=== PATIENT | male | born 1945 | race Caucasian/White ===

== ENCOUNTER 2022-07-31 10:09 | Inpatient (IN) | payer MEDICARE, OTHER ==
[~2022-07-31] VITALS: Ht 177.8 cm; Wt 77.1 kg
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
[2022-07-31] MEDS ORDERED: MORPHINE SULFATE INJ 2 MG/ML DISP.SYRIN IV ONE ×2 (11:30→16:00)
[2022-07-31 11:42] LABS: BASOPHILS # (AUTO) 0.1 K/uL (0.0-0.2); BASOPHILS % (AUTO) 0.6 % (0.0-2.0); EOSINOPHILS % (AUTO) 0.5 % (0.0-6.0); HEMATOCRIT 36 % (39-51); HEMOGLOBIN 11.6 g/dL (13.5-17.5); LYMPHOCYTES # (AUTO) 1.6 K/uL (0.8-4.8); LYMPHOCYTES % (AUTO) 17.1 % (20.0-44.0); MEAN CORPUSCULAR HGB CONC 33 g/dl (31.0-36.0); MEAN CORPUSCULAR VOLUME 80 fL (80-96); MONOCYTES # (AUTO) 0.7 K/uL (0.1-1.30); MONOCYTES % (AUTO) 7.4 % (2.0-12.0); NEUTROPHILS # (AUTO) 7.1 K/uL (1.8-8.9); NEUTROPHILS % (AUTO) 74.4 % (43.0-81.0); PLATELET COUNT (AUTO) 245 K/uL (150-450); RED BLOOD CELL COUNT(AUTO) 4.44 MIL/uL (4.5-6.0); WHITE BLOOD COUNT (AUTO) 9.5 K/uL (4.3-11.0)
[2022-07-31] MEDS ORDERED: MORPHINE SULFATE INJ 2 MG/ML DISP.SYRIN ONE (11:49)
[2022-07-31 11:52] LABS: CALCIUM, SERUM 9.1 mg/dL (8.5-10.1); CREATININE 1.1 mg/dL (0.6-1.3)
[2022-07-31] MEDS ORDERED: IV NS 0.9% 250 ML IV ONE (12:35)
[2022-07-31] MEDS ORDERED: IOHEXOL-300 100 ML VIAL IV ONE (12:35)
[2022-07-31] MEDS ORDERED: CT SWABBABLE VALVE TRANS SET 1 EA INFUS.SET MC ONE (12:35)
--- NOTE | 2022-07-31 12:56 | NUR ---
PATIENTTAKEN TO CT VIA [facility]
--- NOTE | 2022-07-31 15:57 | NUR ---
SWAB FOR COVID19 SENT TO LAB
[2022-07-31] MEDS ORDERED: MORPHINE SULFATE INJ 4 MG/ML DISP.SYRIN ONE (16:00)
[2022-07-31 16:20] VITALS: BP 155/90
[2022-07-31] MEDS ORDERED: FERR325T24 PO (16:21)
[2022-07-31] MEDS ORDERED: OMEP40CA21 PO (16:21)
[2022-07-31] MEDS ORDERED: FENO134C PO (16:21)
[2022-07-31] MEDS ORDERED: SERT50TA12 PO (16:21)
[2022-07-31] MEDS ORDERED: TAMS-12 PO (16:21)
[2022-07-31] MEDS ORDERED: METF-440 PO (16:21)
[2022-07-31] MEDS ORDERED: LINA145C PO (16:21)
[2022-07-31] MEDS ORDERED: ALPR0.5T8 PO (16:21)
[2022-07-31] MEDS ORDERED: LISI-768 PO (16:21)
[2022-07-31] MEDS ORDERED: ALBU18HF2 INH (16:21)
[2022-07-31] MEDS ORDERED: ROSU10TA29 PO (16:21)
[2022-07-31] MEDS ORDERED: ASPI-1420 PO (16:21)
[2022-07-31] MEDS ORDERED: MELO-105 PO (16:21)
--- NOTE | 2022-07-31 16:47 | NUR ---
GOT BED 314-1, ADMITTING MADE AWARE.
[2022-07-31] MEDS ORDERED: MORPHINE SULFATE INJ 2 MG/ML DISP.SYRIN IV PRN (17:00)
[2022-07-31] MEDS ORDERED: ACETAMINOPHEN 325 MG TABLET PO PRN (17:00)
[2022-07-31] MEDS ORDERED: ONDANSETRON HCL/PF 4 MG/2 ML VIAL IVP PRN (17:00)
[2022-07-31] MEDS ORDERED: ENOXAPARIN SODIUM 40 MG/0.4 ML DISP.SYRIN SQ SCH (17:00)
[2022-07-31] MEDS ORDERED: ALPRAZOLAM 0.5 MG TABLET PO PRN (17:00)
[2022-07-31] MEDS ORDERED: hydrALAZINE HCL IV 20 MG VIAL IV PRN (17:00)
[2022-07-31] MEDS ORDERED: FERROUS SULFATE (325 MG) 325 MG/TAB TABLET PO SCH (17:00)
--- NOTE | 2022-07-31 17:55 | NUR ---
[phone] THEN CALLED ER [phone] DR[address] TAN SPE[address]ING WITH DR. PARRISH.
[2022-07-31] MEDS ORDERED: ATORVASTATIN 40 MG TABLET PO SCH (18:00)
--- NOTE | 2022-07-31 18:02 | NUR ---
CALLED [facility] FOR TRANSPORT ETA 45 MINS PER SOURAV
--- NOTE | 2022-07-31 18:04 | NUR ---
CALLED [facility] UN[facility] 20 MINS AWAY PER [place].
--- NOTE | 2022-07-31 18:07 | NUR ---
[facility]UR[facility]NAGEMENT [facility]LY[phone]. [address] RESPONDING.
--- NOTE | 2022-07-31 18:15 | NUR ---
PICKUP BY [facility] FOR TRANSFER TO [facility] IN A STABLE CONDITION.
--- NOTE | 2022-07-31 18:24 | NUR ---
REPORT GIVEN TO YUMIKO MINA [facility] [phone] FOR KENDRA
[2022-07-31] MEDS ORDERED: ALBUTEROL FS 2.5 MG/3 ML VIAL.NEB NEB SCH ×2 (19:30)
[2022-08-01] MEDS ORDERED: PANTOPRAZOLE 40 MG TABLET.DR PO SCH (07:30)
[2022-08-01] MEDS ORDERED: ASPIRIN EC 81 MG TABLET.DR PO SCH (09:00)
[2022-08-01] MEDS ORDERED: SERTRALINE HCL 50 MG TABLET PO SCH (09:00)
[2022-08-01] MEDS ORDERED: TAMSULOSIN 0.4 MG CAP.SR.24H PO SCH (09:00)
[2022-08-01] MEDS ORDERED: LISINOPRIL (5MG) 5 MG TABLET PO SCH (09:00)
[2022-08-01] MEDS ORDERED: METFORMIN 500 MG TABLET PO SCH (09:00)
[2022-08-01] MEDS ORDERED: Medication Not On Formulary EA (Linaclotide (Linzess) 145 MCG) PO SCH (09:00)
[2022-08-01] MEDS ORDERED: Medication Not On Formulary EA (Fenofibrate,Micronized (Fenofibrate) 134 MG) PO SCH (09:00)
== END 2022-07-31 18:44 | disposition short-term general hospital (02) | DRG 565 ==
LOC: ER 10:19 → MED 17:02
PROVIDERS: ADMIT Internal Medicine; ATTEND Internal Medicine
DX: S22.20XA Unspecified fracture of sternum, initial encounter for closed fracture (principal); S22.050A Wedge compression fracture of T5-T6 vertebra, initial encounter for closed fracture; V43.52XA Car driver injured in collision with other type car in traffic accident, initial encounter; Y92.488 Other paved roadways as the place of occurrence of the external cause; I10 Essential (primary) hypertension; E78.5 Hyperlipidemia, unspecified; E11.9 Type 2 diabetes mellitus without complications; Z20.822 Contact with and (suspected) exposure to COVID-19
CPT/HCPCS: 36415; 70450-TC; 71270-TC; 72125-TC; 73564-TC; 80048-TC; 85025-TC; 87081-TC; C9803; G0378; J2270; J7050; Q9967